=== PATIENT | female | born 1965 | race Caucasian/White ===

== ENCOUNTER → 2018-06-14 10:40 | Outpatient (CLI) | payer OTHER, SELFPAY ==
--- NOTE | 2018-06-14 | DI.MG.S_ITS ---
BILATERAL DIGITAL SCREENING MAMMOGRAM 3D/2D WITH CAD: 06/14/2018 CLINICAL: Routine screening. Comparison is made to exams dated: 03/11/2017 mammogram, 02/22/2016 mammogram - [facility], 04/24/2011 mammogram - [facility], and 03/21/2017 mammogram - [facility]. The tissue of both breasts is heterogeneously dense. This may lower the sensitivity of mammography. Current study was also evaluated with a Computer Aided Detection (CAD) system. No significant masses, calcifications, or other findings are seen in either breast. There has been no significant interval change. IMPRESSION: NEGATIVE There is no mammographic evidence of malignancy. A 1 year screening mammogram is recommended. This exam was interpreted at Station ID: [id number]. NOTE: For mammograms, a report in lay terms will be sent to the patient. Approximately 15% of breast malignancies will not be visualized mammographically. In the management of a palpable breast mass, a negative mammogram must not discourage biopsy of a clinically suspicious lesion. Electronically Signed By: Luke alcantar/tara:06/16/2018 16:49:16 letter sent: Normal Exam ACR BI-RADS Category 1: Negative 3341F
== END ==
PROVIDERS: PCP Family Medicine; Visit Provider Family Medicine
DX: Z12.31 Encounter for screening mammogram for malignant neoplasm of breast (principal)
CPT/HCPCS: 77063; 77067

== ENCOUNTER → 2020-01-07 08:59 | Outpatient (CLI) | payer OTHER, SELFPAY ==
[2020-01-07 11:09] LABS: Add Manual Diff / Slide Review NO; Basophils Absolute Auto 0 /uL (0-100); Basophils Percent Auto 0.4 % (0-2); Eosinophils Absolute Auto 200 /uL (0-450); Hematocrit 45.2 % (36-46); Hemoglobin 15.4 g/dL (12.0-16.0); Lymphocytes Absolute Auto 2000 /uL (1100-4500); Lymphocytes Percent Auto 34.5 % (25-40); Mean Corpuscular Hemoglobin 29.4 PG (26-34); Mean Corpuscular Volume 86.4 fL (80-100); Monocytes Absolute Auto 400 /uL (0-900); Monocytes Percent Auto 7.7 % (3-14); Neutrophils Absolute Auto 3000 /uL (1500-7000); Neutrophils Percent Auto 53.4 % (50-75); Platelet Count 240 X10^3/uL (150-400); Red Blood Cell Count 5.23 X10^6/uL (4.0-5.2); White Blood Cell Count 5.6 X10^3/uL (4.5-11.0)
[2020-01-07 12:03] LABS: Alanine Aminotransferase 15 IU/L (<35); Albumin 4.1 g/dL (3.5-5.0); Albumin Globulin Ratio 1.3 (1.0-2.8); Alkaline Phosphatase 101 U/L (38-126); Aspartate Aminotransferase 18 IU/L (14-36); BUN Creatinine Ratio 20.9 (6-22); Bilirubin Total 0.5 mg/dL (0.2-1.3); Blood Urea Nitrogen 19 mg/dL (7-17); Calcium 9.4 mg/dL (8.4-10.2); Carbon Dioxide 31 mmol/L (22-32); Chloride 101 mmol/L (98-107); Cholesterol 294 mg/dL (140-199); Estimated Glomerular Filt Rate > 60.0 mL/min (>60); Globulin 3.2 g/dL (1.7-4.1); Glucose 104 mg/dL (70-100); HDL Cholesterol 44 mg/dL (40-60); HEMOLYSIS < 15 (0-50); LDL Cholesterol Calculated 198 mg/dL (<100); Potassium 4.4 mmol/L (3.4-5.1); Sodium 139 mmol/L (137-145); Total Protein 7.3 g/dL (6.3-8.2); Triglycerides 259 mg/dL (35-150)
[2020-01-07 12:19] LABS: TSH w/ Reflex to FT4 2.38 uIU/mL (0.47-4.68)
== END ==
PROVIDERS: PCP Registered Nurse Diabetes Educator; Referring Provider Registered Nurse Diabetes Educator; Visit Provider Registered Nurse Diabetes Educator
DX: Z00.00 Encounter for general adult medical examination without abnormal findings (principal)
CPT/HCPCS: 36415; 80053; 80061; 84443; 85025

== ENCOUNTER → 2020-01-14 17:36 | Outpatient (CLI) | payer OTHER, SELFPAY ==
--- NOTE | 2020-01-14 17:39 | DI.MG.S_ITS ---
BILATERAL DIGITAL SCREENING MAMMOGRAM 3D/2D WITH CAD: 01/14/2020 CLINICAL: Routine screening. Comparison is made to exams dated: 06/14/2018 mammogram, 03/11/2017 mammogram, and 02/22/2016 mammogram - [facility]. The tissue of both breasts is heterogeneously dense. This may lower the sensitivity of mammography. Current study was also evaluated with a Computer Aided Detection (CAD) system. No significant masses, calcifications, or other findings are seen in either breast. There has been no significant interval change. IMPRESSION: NEGATIVE There is no mammographic evidence of malignancy. A 1 year screening mammogram is recommended. This exam was interpreted at Station ID: [id number]. NOTE: For mammograms, a report in lay terms will be sent to the patient. Approximately 15% of breast malignancies will not be visualized mammographically. In the management of a palpable breast mass, a negative mammogram must not discourage biopsy of a clinically suspicious lesion. Electronically Signed By: Giovanni Holder M.D., jr/tara:01/15/2020 08:36:32 letter sent: Normal Exam ACR BI-RADS Category 1: Negative 3341F
== END ==
PROVIDERS: PCP Registered Nurse Diabetes Educator; Referring Provider Registered Nurse Diabetes Educator; Visit Provider Registered Nurse Diabetes Educator
DX: Z12.31 Encounter for screening mammogram for malignant neoplasm of breast (principal)
CPT/HCPCS: 77063; 77067

== ENCOUNTER 2020-05-26 19:54 | Emergency (ER) | payer OTHER, SELFPAY ==
[2020-05-26 20:03] VITALS: BP 191/110; PULSE 92; RESP 17; TEMP 36.8; O2SAT 95; BMI 42.4
--- NOTE | 2020-05-26 20:05 | DI.US.S_ITS ---
PROCEDURE: US PERIPH VENOUS LOW EXTREM LT INDICATIONS: rule out dvt TECHNIQUE: Real-time imaging, as well as color and pulse Doppler interrogation, were performed of the lower extremity deep veins from the inguinal ligament to the popliteal fossa. COMPARISON: None. FINDINGS: The common femoral, femoral and popliteal veins are normally compressible, and free of intraluminal thrombus. Color and pulse Doppler demonstrate normal phasic intraluminal flow. There is normal augmentation response to distal compression maneuver. IMPRESSION: No DVT in the left lower extremity. Dictated by: Sofi Chapman M.D. on 05/26/2020 at 21:14 Approved by: Sofi Chapman M.D. on 05/26/2020 at 21:15
--- NOTE | 2020-05-26 20:14 | PC.NURSE ---
Pain in calf and achilles. Pt has a Bakers Cyst behind left knee. Bilateral shins with brown discoloration/sun damage.
[2020-05-26 20:20] VITALS: PULSE 82; O2SAT 97
[2020-05-26 20:30] VITALS: BP 187/99; PULSE 85; O2SAT 97
[2020-05-26 21:00] VITALS: BP 169/96; PULSE 81; O2SAT 97
--- NOTE | 2020-05-26 21:04 | ED.EXTPRO ---
HPI - Extremity Problem General Chief complaint: Extremity Problem,Nontraumatic Stated complaint: left leg, hot and swelling Time Seen by Provider: 05/26/20 20:50 Source: patient Mode of arrival: Ambulatory Limitations: no limitations History of Present Illness HPI Narrative: Patient is a 55-year-old male with no past medical history presenting today with left leg pain and swelling ongoing for about a week. She says that she has been seeing a chiropractor to can help with some left leg swelling and Achilles issues. She said she has had some inflammation and pain along her Achilles for a week or more. 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 She tries to elevate her leg when she goes home. She does think that there is some decrease in swelling in the morning and it progressively gets worse throughout the day but it is not on her right leg. She denies any fever or chills. She saw a chiropractor today who thought that her leg was more swollen than normal and it was erythematous. His she denies numbness or tingling. She is currently not taking any medication. Her Achilles is obviously tender to touch. He denies any recent travel no prior history of DVT or PE MD Complaint: extremity swelling Onset (ago): week(s) Pain Consistency: constant Location: left and lower extremity Related Data Home Medications Medication Instructions Recorded Confirmed No Known Home Medications 12/24/19 01/19/20 Allergies Allergy/AdvReac Type Severity Reaction Status Date / Time No Known Drug Allergies Allergy Verified 01/19/20 16:38 Review of Systems Review of Systems Narrative: GENERAL: Denies chills, fatigue, malaise, fever, sweats, travel HEENT: Denies sinus pain, ear pain, sore throat, difficulty swallowing, neck pain RESPIRATORY: Denies dyspnea, cough, wheezing, hemoptysis, sputum. CARDIOVASCULAR: Denies chest pain, palpitations, orthopnea, edema GASTROINTESTINAL: Denies nausea, vomiting, abdominal pain, diarrhea, constipation, melena. : Denies dysuria, frequency, incontinence, hematuria, urinary retention, flank pain. MUSCULOSKELETAL: See HPI SKIN: No rash, no erythema, no pruritus NEUROLOGIC: Denies weakness, dizziness, headache, numbness, change in speech, confusion PSYCHIATRIC: No concerning psychosocial issues. 12 point review of systems is negative except for those stated above and HPI Patient History Medical History (Updated 05/26/20 @ 21:16 by Renata Oconnor DO) Allergic rhinitis Cardiac syndrome X Dyslipidemia Knee pain Migraine Mild intermittent asthma Obesity Social History Smoking Status: Never smoker Smoking Status: Never smoker Substance Use Type: does not use Exam Initial Vital Signs Initial Vital Signs: Vital Signs Temperature 98.2 F 05/26/20 20:03 Pulse Rate 92 H 05/26/20 20:03 Respiratory Rate 17 05/26/20 20:03 Blood Pressure 191/110 H 05/26/20 20:03 Pulse Oximetry 95 05/26/20 20:03 GENERAL: Pleasant nice 55-year-old female and in no acute distress. HEENT: Head atraumatic,EOMI, pupils reactive, face symmetric, moist mucous membranes CARDIOVASCULAR: Regular rate and rhythm without murmurs, rubs or gallops. RESPIRATORY: Breath sounds equal bilaterally, no wheezes rales or rhonchi. EXTREMITIES: Normal range of motion, no clubbing or edema. Neurovascularly intact Left lower extremity is mildly more swollen than her right a. She is tender along her Achilles but is able to flex his and extend her foot without issue. Distal pedal pulse intact NEUROLOGICAL: Alert and oriented x4.Normal gait and speech. Cranial nerves II through XII grossly intact. SKIN: Patient has some mild erythema on the medial part of her legs were they rub together. No significant his left lower extremity erythema. Course Orders Ordered: ED Orders 05/26/20 20:05 US periph venous low extrem lt Stat Vital Signs Vital signs: Vital Signs - 8 hr 05/26/20 20:03 05/26/20 20:20 05/26/20 20:30 Temperature 98.2 F Pulse Rate 92 H 82 85 Respiratory Rate 17 Blood Pressure 191/110 H 187/99 H Pulse Oximetry 95 97 97 05/26/20 21:00 05/26/20 21:26 Temperature Pulse Rate 81 83 Respiratory Rate Blood Pressure 169/96 H 169/96 H Pulse Oximetry 97 97 MDM - Extremity (Nontraumatic) Imaging Data US - DVT: Radiologist's Impression: PROCEDURE: US PERIPH VENOUS LOW EXTREM LT INDICATIONS: rule out dvt TECHNIQUE: Real-time imaging, as well as color and pulse Doppler interrogation, were performed of the lower extremity deep veins from the inguinal ligament to the popliteal fossa. COMPARISON: None. FINDINGS: The common femoral, femoral and popliteal veins are normally compressible, and free of intraluminal thrombus. Color and pulse Doppler demonstrate normal phasic intraluminal flow. There is normal augmentation response to distal compression maneuver. IMPRESSION: No DVT in the left lower extremity. Dictated by: Sofi Chapman M.D. on 05/26/2020 at 21:14 MDM Narrative Medical decision making narrative: The patient's left leg is only mildly more swollen than her right. No sign of cellulitis no antibiotics indicated at this time. Ultrasound is negative for DVT. She is tender along her Achilles likely Achilles tendinitis. She is not currently on medication to be causing this. This may also be contributing to some of her swelling. I recommend ibuprofen ice and possible orthopedic follow-up I told both her and her that there are antibiotics such as fluoroquinolones that she needs to avoid Discharge Plan Departure Patient Disposition: Home Clinical Impression: Achilles tendinitis Qualifiers: Laterality: left Qualified Code(s): M76.62 - Achilles tendinitis, left leg Instructions: Achilles Tendinopathy Activity Restrictions/Additional Instructions: *You have been diagnosed with Achilles tendinitis *What to do: Recommend wearing compression socks as to help with swelling in the left leg. Her ultrasound is negative for DVT. You may need referral to orthopedics in regards to her Achilles tendon *Continue to take medications as directed Ibuprofen 600 mg every 6-8 hours if needed for [id number] pain *Follow up with your primary care provider in 2-3 days *Return to ER if you should have is increasing swelling, redness, fever, pain or any new, worsening or concerning symptoms Prescriptions: No Action No Known Home Medications RF: 0 Referrals: Hoang Ravi ARNP [Primary Care Provider] -
[2020-05-26 21:26] VITALS: BP 169/96; PULSE 83; O2SAT 97
== END 2020-05-26 21:30 | disposition home or self-care (01) ==
PROVIDERS: Emergency Provider Emergency Medicine; PCP Registered Nurse Diabetes Educator
DX: M76.62 Achilles tendinitis, left leg (principal); E78.5 Hyperlipidemia, unspecified; E66.9 Obesity, unspecified; Z68.41 Body mass index [BMI] 40.0-44.9, adult
CPT/HCPCS: 93971; 99283

== ENCOUNTER → 2020-06-01 15:38 | Outpatient (CLI) | payer OTHER, SELFPAY ==
--- NOTE | 2020-06-01 15:40 | DI.RAD.S_ITS ---
PROCEDURE: XR ANKLE LT MIN 3V INDICATIONS: left achilles pain and bruising TECHNIQUE: 3 views of the ankle were acquired. COMPARISON: None. FINDINGS: Bones: No fractures or dislocations. Ankle mortise is normally aligned. No suspicious bony lesions. Soft tissues: No tibiotalar joint effusion. Achilles tendon appears normal. IMPRESSION: No osseous trauma is found. The lateral view does not allow clear visualization of the Achilles tendon, but there is edema within the soft tissues and prominence of fatty soft tissues and edematous soft tissues in this area reducing quality of visualization. If Achilles tendon partial or complete tear is clinically suspected follow-up by MR scanning should be obtained. Dictated by: Jovany Alvarez M.D. on 06/01/2020 at 16:15 Approved by: Jovany Alvarez M.D. on 06/01/2020 at 17:08
--- NOTE | 2020-06-01 15:40 | DI.RAD.S_ITS ---
PROCEDURE: XR KNEE RT 3V INDICATIONS: bilateral knee pain TECHNIQUE: Degenerative knee joint osteoarthritis study, 3 views of the knee were acquired. COMPARISON: [facility], , KNEE 3V LEFT, 04/04/2010, 13:33. FINDINGS: Bones: No fractures or dislocations. No suspicious bony lesions. Worsening osteoarthritis from the comparison study 04/04/10. It was relatively mild in 2009 and now is near severe at the medial compartment right knee. Moderate osteoarthritis is present at the other compartments. No trauma. Soft tissues: No joint effusion. No suspicious soft tissue calcifications. IMPRESSION: Overall knee joint osteoarthritis is greater on the right than the left, and near severe on the right on the current study. As was seen on the left the degree of degeneration has appreciably worsened from 2009. Dictated by: Jovany Alvarez M.D. on 06/01/2020 at 17:09 Approved by: Jovany Alvarez M.D. on 06/01/2020 at 17:25
--- NOTE | 2020-06-01 15:40 | DI.RAD.S_ITS ---
PROCEDURE: XR KNEE LT 3V INDICATIONS: bilateral knee pain TECHNIQUE: 3 views of the knee were acquired. Knee joint osteoarthritis previously seen. COMPARISON: [facility], , KNEE 3V LEFT, 04/04/2010, 13:33. FINDINGS: Bones: No fractures or dislocations. No suspicious bony lesions. Soft tissues: No joint effusion. No suspicious soft tissue calcifications. IMPRESSION: No trauma found. There has been progression of degenerative knee joint osteoarthritis on the left with reference to the earlier plain film imaging from 04/04/10. Overall arthritis now is moderate in severity. It previously was mild. Dictated by: Jovany Alvarez M.D. on 06/01/2020 at 17:08 Approved by: Jovany Alvarez M.D. on 06/01/2020 at 17:09
== END ==
PROVIDERS: PCP Registered Nurse Diabetes Educator; Referring Provider Family Medicine; Visit Provider Family Medicine
DX: M25.561 Pain in right knee (principal); M25.562 Pain in left knee; M17.0 Bilateral primary osteoarthritis of knee; M76.62 Achilles tendinitis, left leg; M25.572 Pain in left ankle and joints of left foot
CPT/HCPCS: 73562; 73610

== ENCOUNTER → 2020-06-07 16:57 | Outpatient (CLI) | payer OTHER, SELFPAY ==
--- NOTE | 2020-06-07 17:00 | DI.MRI.S_ITS ---
PROCEDURE: MR ANKLE LT WO CON INDICATIONS: left achilles pain and bruising TECHNIQUE: Noncontrast sagittal T1 spin echo and T2 fast spin echo with fat saturation, axial proton density fast spin echo and T2 fast spin echo with fat saturation, coronal T1 spin echo and T2 fast spin echo with fat saturation through the ankle/hindfoot. COMPARISON: [facility], CR, XR ANKLE LT MIN 3V, 06/01/2020, 15:39. FINDINGS: Image quality: Excellent. Bones and joints: No bone marrow contusions or fractures. No hindfoot coalitions. No osteochondral injuries of the talar dome. No pathologic joint effusions. Mild degenerative changes are seen at the 1st tarsometatarsal joint. Medial structures: The deep and superficial layers of the deltoid ligament appear intact. The spring ligament components are intact. The posterior tibialis, flexor digitorum longus, and flexor hallucis longus tendons are intact. The posterior tibial neurovascular bundle appears normal within the tarsal tunnel, without extrinsic mass effect. Lateral structures: There is chronic complete tearing of the anterior talofibular ligament. The calcaneofibular ligament and posterior talofibular ligament are intact. The anterior and posterior tibiofibular ligaments appear intact. There is mild peroneus brevis tendinosis. The peroneus longus tendon is intact. The sinus tarsi demonstrates normal fatty signal, without edema, fibrosis, or cyst formation. Anterior structures: The tibialis anterior, extensor hallucis longus, and extensor digitorum longus tendons appear intact. The dorsal talonavicular ligament appears intact. Posterior and plantar structures: There is complete tearing of the Achilles tendon approximately 5 cm above its insertion onto the calcaneus. There is separation of the posterior fibers measuring up to 2.4 cm and delamination and further separation of the more anterior fibers measuring up to 4 cm. A small fluid collection/hematoma is seen between the tendon fibers. The plantaris tendon also appears to be torn. A small nonedematous plantar calcaneal spur is present. There is mild thickening of the proximal plantar fascia compatible with chronic tendinosis. There is grade 2 fatty infiltration of the abductor digiti minimi muscle that may be related to chronic denervation changes. IMPRESSION: 1. Complete rupture of the Achilles tendon approximately 5 cm above the distal insertion with separation of tendon fibers measuring up to 4 cm and a small intervening hematoma. The plantaris tendon is also torn. 2. Chronic complete tearing of the anterior talofibular ligament. 3. Mild peroneus brevis tendinosis 4. Moderate chronic plantar fasciitis. 5. Mild fatty infiltration of the abductor digiti minimi muscle may be secondary to chronic denervation changes (Pugh's neuropathy). Dictated by: Carl Luna M.D. on 06/08/2020 at 9:02 Approved by: Carl Luna M.D. on 06/08/2020 at 9:15
== END ==
PROVIDERS: PCP Registered Nurse Diabetes Educator; Referring Provider Family Medicine; Visit Provider Family Medicine
DX: M79.605 Pain in left leg (principal); S86.012A Strain of left Achilles tendon, initial encounter; S93.492A Sprain of other ligament of left ankle, initial encounter; M72.2 Plantar fascial fibromatosis
CPT/HCPCS: 73721

== ENCOUNTER → 2020-06-20 16:54 | Outpatient (CLI) | payer OTHER, SELFPAY ==
[2020-06-20 18:06] LABS: COVID19 -Nasal RAPID Negative (Negative)
== END ==
PROVIDERS: PCP Registered Nurse Diabetes Educator; Visit Provider Physician Assistant
DX: Z20.822 Contact with and (suspected) exposure to COVID-19 (principal)
CPT/HCPCS: 87635

== ENCOUNTER 2020-06-22 07:20 | Day surgery (SDC) | payer OTHER, SELFPAY ==
[2020-06-22] VITALS (12 sets, daily range): BP systolic 115–155; BP diastolic 66–103; PULSE 68–81; RESP 10–18; TEMP 36.3–36.6; O2SAT 83–99; BMI 40.7
[2020-06-22] MEDS: LACTATED RINGERS 1,000 ML 100 ML IV (08:07)
--- NOTE | 2020-06-22 08:32 | PM.PREOP ---
Pre-operative Note COVID-19 COVID-19 status: Negative Interval Note History & Physical reviewed/Exam performed by Physician: Yes Changes to H&P: No
--- NOTE | 2020-06-22 09:13 | SUR.PREOP ---
0850 - Monitoring initiated and maintained throughout procedure. O2 at 2LNC placed per Dr Mcmillan. Time out performed for left sciatic nerve block. Versed given by Dr Mcmillan. 0905 - Injection time. 0907- Block complete. Pt remained stable throughout procedure. No adverse reactions noted.
[2020-06-22] MEDS: CEFAZOLIN 1 GM/50 ML FROZ.PIGGY IV (09:15)
[2020-06-22] MEDS: CEFAZOLIN 2 GM/100 ML FROZ.PIGGY IV (09:25)
--- NOTE | 2020-06-22 09:39 | SUR.OPER ---
Prone on padded OR bed, head in foam head support, gel chest rolls, gel pad under knees, pillow under lower legs, left leg under control of surgeon, toes free of pressure, Right lower leg is taped over the blanket to the OR bed. Arms secured on padded arm boards at <90 degrees abduction. Safety belt at her back
[2020-06-22] MEDS: BUPIVACAINE 0.5% W/ EPI (PF) 30 ML VIAL INJ (09:52)
--- NOTE | 2020-06-22 10:12 | P.PCN_ITS ---
Procedures Date/Time Date of procedure: 06/22/20 Time of procedure: 08:50 General Procedure description: Ultrasound guided popliteal sciatic nerve block for post op pain control after left achilles tendon repair by Dr. Manuel. Risk and demian efits of procedure discussed with patient. ASA monitoring applied to patient. Oxygen given via nasal cannula. 2 mg Versed and 50 mcg fentanyl given for procedural sedation. Skin site was prepped with chlorhexidine and allowed to fully dry. Sterile gloves, mask, hat and probe cover were used to maintain sterility. 2% lidocaine and 30ga needle was used to make a small skin wheal at needle insertion site. Under ultrasound guidance, a 21ga 100mm Pajunk needle was directed near the division of the sciatic nerve into tibial and peroneal nerve in the popliteal fossa (lateral approach). Patient reported no parasthesias. After negative aspiration, 20 mL 0.5% ropivicaine and 10mg dexamethasone were in jected around sciatic nerve. Patient tolerated procedure well.
[2020-06-22] MEDS: OXYCODONE/ACETAMINOPHEN 5/325 TABLET 1 TAB PO ×2 (11:27→12:28)
[2020-06-22] MEDS: ONDANSETRON 4 MG/2 ML INJ IV (11:27)
--- NOTE | 2020-06-22 11:30 | P.OP_ITS ---
Operative Date/Time/Diagnoses Date of procedure: 06/22/20 Time of procedure: 09:30 Pre-op diagnosis: left Achilles tendon rupture, subacute morbid obesity BMI 40.8 Post-op diagnosis: same Procedure & Clinicians Procedure: 1. Left Achilles tendon repair secondary [id number] 2. left V-Y lengthening CPT 77641 this procedure was performed with modifier 22 for increased complexity and time. Patient's morbid obesity BMI 40.8 requiring additional time aid in positioning and exposure. The rupture was subacute approximately 4 to 5-week-old with organized hematoma and scar requiring debridement and V-Y lengthening. Same procedure as scheduled: Yes Indications: Patient is a 55-year-old female that presents with left ankle pain and weakness. She has a full-thickness left Achilles tendon rupture unfortunately this happened sometime about a month ago. She had a prodrome of pain and then less pain and new weakness. She does not have diabetes. No vascular problems she does have a history of knee arthritis and right knee pain. No history of blood clots. No medical allergies. She has been indicated for repair of her Achilles tendon rupture and she has been counseled on possible lengthening a required based on the 5 cm gap present on MRI. The risks and benefits of the procedure have been discussed with the patient even opportunity to ask questions. The risks of surgery include but are not limited to infection, malunion, nonunion, persistence of pain, damage to nerves and blood vessels, posttraumatic arthritis, DVT, PE, cardiopulmonary complications and . The patient expressed a thorough understanding of the risks and benefits of surgery and has elected to proceed. Consent was signed in the office. Surgeon: Estrellita Manuel Click Yes if Unassisted: Yes Anesthesia Type: General, Peripheral nerve block ( Placed by Anesthesia Team) and Local ( 10 cc 0.5% Marcaine) Operative Notes Findings: full-thickness Achilles tendon rupture in watershed area with a sero ma and organized scar requiring extensive debridement. After debridement and in maximal plantar flexion position still had a gap of approximately 3 cm lengthening was completed to obtain tendinous contact in maximal plantar flexion position Closure Type: primary Specimen(s): none sent Applied: implant(s) ( Ar[employer]rex SwiveLock anchors, with FiberTape) Estimated Blood Loss (mL): 20 Blood products transfused: none Tourniquet time (min): 59 Procedure in detail: patient was seen in the preoperative area the site of surgery was marked informed consent confirmed. The patient was brought back to the operating room by the anesthesia team. A peripheral nerve block was placed by the anesthesia team for postoperative pain control. patient was positioned supine general anesthetic was administered on the stretcher then the patient was positioned prone on the operative table. All bony prominences were well padded. A well-padded thigh tourniquet was placed on the left lower extremity prior to the roll. The left lower extremity was prepped and draped in the standard sterile fashion. Formal time-out procedure was performed confirming the patient's side and site of surgery administration of appropriate weight based preoperative antibiotics which in this case was 3 g of cefazolin. all were in agreement. The Esmarch was used for exsanguination the tourniquet raised on the thigh to 250 mm of mercury. Attention was turned to the left leg there is a palpable gap and and increased resting dorsiflexion compared to the contralateral side. The incision was marked out just medial to the Achilles tendon starting at the level of the rupture extending proximally and then curving into the midline. This was taken down through the skin subcutaneous tissue. The paratenon was opened and the rup ture encountered. There was a small seroma within the paratenon that was removed with suction. Next the scar at the tendon ends was debrided. This left approximately a 6 cm gap and then with maximal plantar flexion was still about a 3 cm gap even after about 5 minutes of tension using Allis clamps and tension on the suture tape. Decision was made for a V-Y lengthening to bridge this remaining gap. The Arthrex FiberTape was placed through the proximal stump in a Krackow fashion next the V-Y lengthening was marked out with the limbs of about 5-6 cm for a 2-3 cm lengthening. once the V-Y lengthening was complete we were able to make contact with the distal and proximal stumps in the maximal plantar flexion position. Decision was made to utilize the midsubstance a speed bridge just SwiveLock anchors into the calcaneus and bypass the distal stump which was a diminutive and also would avoid additional exposure of the distal stump in the area of most vulnerable to wound breakdown. It is also felt that direct bone anchors in this patient with the morbid obesity would help protect the repair for early mobilization. A deep fasciotomy was completed to at of blood flow to the repair. Then 2 stab incisions were made over the heel at the Achilles insertion the hemostat was used to clear off soft tissue down to bone. The drill was positioned angulated just done down and in at 45 degree angle and drilled to the stop. Then the 4.75 tap was utilized on both sides. The Banana Lasso was then passed from the stab wound through the distal stump and the suture tape in the proximal stump was retrieved back out the stab incisions in the heel. These were then loaded on the SwiveLock anchors the leg was held in maximal plantar flexion the and stump pins were noted to approximate well and the swivel locks were advanced into the bone with a good natural squeak. Care was taken to make sure that the anchor heads were buried and not prominent. once this was completed the area of tendon anastomosis was oversewn with some 0 Vicryl in a figure-eight fashion. The V-Y lengthening was closed down with 2. FiberWire. The repair was tested restoring a Brandon test and holding against resistance. The wound was irrigated thoroughly. The paratenon was closed with 2 0 PDS suture. Tourniquet was released hemostasis was achieved. Several 2 0 PDS raised in the subcutaneous tissue and then 4-0 Monocryl and 3-0 nylon in the skin. A sterile dressing was placed with Xeroform gauze ABD pads Webril and a posterior splint in a plantar flexion position. Complications: none Post-operative Condition: stable Disposition: PACU Plan for aftercare: NWB (toe-touch for balance) left lower extremity. Elevate above the heart level as much as possible 1st 2 weeks after surgery. Left oxycodone for pain. Zofran for nausea. Start taking aspirin 325 mg b.i.d. on postop day 1 for DVT prophylaxis. Follow up in clinic in 2 weeks
[2020-06-22] MEDS: fentaNYL 100 MCG/2 ML INJ IV (11:55)
== END 2020-06-22 13:00 | disposition home or self-care (01) ==
PROVIDERS: PCP Registered Nurse Diabetes Educator; Referring Provider Registered Nurse Diabetes Educator; Visit Provider Orthopaedic Surgery Foot and Ankle Surgery
PROC: (CPT 27650; principal; 2020-06-22 08:45)
DX: S86.012A Strain of left Achilles tendon, initial encounter (principal); M17.11 Unilateral primary osteoarthritis, right knee; J45.909 Unspecified asthma, uncomplicated; Z68.41 Body mass index [BMI] 40.0-44.9, adult; E66.01 Morbid (severe) obesity due to excess calories
CPT/HCPCS: 27654; J0690; J1100; J1885; J2250; J2405; J2704; J3010

== ENCOUNTER → 2021-12-19 17:31 | Outpatient (CLI) | payer OTHER, SELFPAY ==
--- NOTE | 2021-12-19 17:31 | DI.MRI.S_ITS ---
PROCEDURE: MR KNEE RT WO CON INDICATIONS: bilateral knee pain TECHNIQUE: Noncontrast sagittal PD fast spin echo and T2 fast spin echo with fat saturation, sagittal 3-D FLASH with fat saturation; coronal T1 spin echo and PD fast spin echo with fat saturation, and axial PD fast spin echo with fat saturation through the knee. COMPARISON: [facility], MR, KNEE WITHOUT CONTRAST, 06/24/2013, 19:27. FINDINGS: Image quality: Excellent. Menisci: Peripheral displacement of medial meniscus bowing medial collateral ligament is seen. There is suggestion of chronic complex tear involving body and posterior horn of medial meniscus extending to both superior and inferior articulating surfaces. No gross focal lateral meniscal tear. The meniscal root ligaments appear intact. Cruciate ligaments: Chronic myxoid degenerative changes are noted in ACL. No definite full 6 is ACL rupture. PCL is intact. Medial structures: Moderate grade MCL sprain/partial-thickness tear is seen.. The posterior oblique ligament, semimembranosus tendon insertions, oblique popliteal ligament, and meniscocapsular junction appear intact. Visualized portions of the pes anserinus tendons appear normal. No abnormal bursal fluid. Lateral structures: The lateral collateral ligament, long and short heads of the biceps femoris tendon appear intact. The popliteus tendon appears normal; the popliteofibular ligament appears intact. The posterosuperior and anteroinferior popliteomeniscal fascicles appear intact. The arcuate and fabellofibular ligaments appear intact, on either side of the lateral inferior geniculate artery. Iliotibial band appears normal. Anterior structures: The quadriceps and patellar tendons appear intact. Patellar alignment is normal. No femoral trochlear dysplasia or ventral trochlear prominence. No edema in the infrapatellar fat pad. Bones and cartilage: Moderate to severe tricompartmental osteoarthritis and chondromalacia more prominent in medial femoral tibial compartment. No fracture or dislocation. Small osteochondral injuries are noted involving weight-bearing portion of lateral femoral condyle and posterior lateral aspect of patella near apex. Joint space: There is small to moderate amount of joint fluid. No gross loose body is seen. Small popliteal cyst is noted measures 2 x 2.1 x 2.3 cm in size with internal septations. Normal appearing synovial plicae are incidentally noted. IMPRESSION: 1. Chronic appearing complex tear involving body and posterior horn of medial meniscus extending to both superior and inferior articulating surfaces. Peripheral displacement of medial meniscus bowing medial collateral ligament. No evidence of focal lateral meniscal tear. 2. Degenerative changes and moderate grade intrasubstance partial-thickness tear involving anterior cruciate ligament. No ACL rupture. PCL is intact. 3. Moderate grade MCL sprain/partial-thickness tear. 4. Moderate to severe tricompartmental osteoarthritis and chondromalacia most prominent in medial femoral tibial compartment as above. No fracture or dislocation. Small to moderate joint effusion and a septated popliteal cyst as above. Dictated by: Jhonathan Yip M.D. on 12/20/2021 at 8:46 Approved by: Jhonathan Yip M.D. on 12/20/2021 at 8:51
--- NOTE | 2021-12-19 17:31 | DI.MRI.S_ITS ---
PROCEDURE: MR KNEE LT WO CON INDICATIONS: bilateral knee pain TECHNIQUE: Noncontrast sagittal PD fast spin echo and T2 fast spin echo with fat saturation, sagittal 3-D FLASH with fat saturation; coronal T1 spin echo and PD fast spin echo with fat saturation, and axial PD fast spin echo with fat saturation through the knee. COMPARISON: [facility], MR, MR KNEE RT WO CON, 12/19/2021, 17:47. FINDINGS: Image quality: Diagnostic, patient motion is noted. Menisci: Peripheral displacement of medial meniscus bowing medial collateral ligament is seen. There is subtle complex tear involving posterior horn of medial meniscus extending to both superior and inferior articulating surfaces. There is no gross focal lateral meniscal tear. The meniscal root ligaments appear intact. Cruciate ligaments: Degenerative changes are noted in anterior cruciate ligament. No ACL rupture. PCL is intact. Medial structures: Low to moderate grade MCL sprain/partial-thickness tear is seen. The posterior oblique ligament, semimembranosus tendon insertions, oblique popliteal ligament, and meniscocapsular junction appear intact. Visualized portions of the pes anserinus tendons appear normal. No abnormal bursal fluid. Lateral structures: The lateral collateral ligament, long and short heads of the biceps femoris tendon appear intact. The popliteus tendon appears normal; the popliteofibular ligament appears intact. Iliotibial band appears normal. Anterior structures: The quadriceps and patellar tendons appear intact. Patellar alignment is normal. No femoral trochlear dysplasia or ventral trochlear prominence. No edema in the infrapatellar fat pad. Bones and cartilage: No bone marrow contusions or fractures. Moderate tricompartmental osteoarthritis and chondromalacia is seen most prominent involving medial femoral tibial compartment with joint space narrowing, subchondral sclerosis and prominent marginal osteophyte formation. Joint space: There is small knee joint fluid. No Mcdonald's cyst. Normal appearing synovial plicae are incidentally noted. IMPRESSION: 1. Moderate tricompartmental osteoarthritis and chondromalacia more prominent in medial femoral tibial compartment. No fracture or dislocation. Small joint effusion, no gross loose bodies. 2. Complex tear involving posterior horn of medial meniscus extending to both superior and inferior articulating surfaces. Lateral meniscus is intact. 3. Degenerative changes seen in ACL. No ACL rupture. PCL is intact. 4. Moderate grade MCL sprain/partial-thickness tear. Dictated by: Jhonathan Yip M.D. on 12/20/2021 at 8:51 Approved by: Jhonathan Yip M.D. on 12/20/2021 at 8:57
== END ==
PROVIDERS: PCP Registered Nurse Diabetes Educator; Referring Provider Pediatrics; Visit Provider Pediatrics
DX: S83.232A Complex tear of medial meniscus, current injury, left knee, initial encounter (principal); M25.561 Pain in right knee; M25.562 Pain in left knee; Z87.828 Personal history of other (healed) physical injury and trauma; S86.019A Strain of unspecified Achilles tendon, initial encounter; M17.0 Bilateral primary osteoarthritis of knee
CPT/HCPCS: 73721

== ENCOUNTER → 2023-09-25 08:13 | Outpatient (CLI) | payer OTHER, SELFPAY ==
[2023-09-25 08:59] LABS: Add Manual Diff / Slide Review NO; Basophils Absolute Auto 0 /uL (0-100); Basophils Percent Auto 0.5 % (0-2); Eosinophils Absolute Auto 200 /uL (0-450); Hematocrit 44.7 % (36-46); Hemoglobin 14.9 g/dL (12.0-16.0); Lymphocytes Absolute Auto 1600 /uL (1100-4500); Lymphocytes Percent Auto 30.4 % (25-40); Mean Corpuscular HGB Conc 33.3 % (30-36); Mean Corpuscular Hemoglobin 28.1 PG (26-34); Mean Corpuscular Volume 84.4 fL (80-100); Monocytes Absolute Auto 400 /uL (0-900); Monocytes Percent Auto 8.3 % (3-14); Neutrophils Absolute Auto 3000 /uL (1500-7000); Neutrophils Percent Auto 57.8 % (50-75); Platelet Count 220 X10^3/uL (150-400); Red Cell Distribution Width 15.2 % (11.6-14.8); White Blood Cell Count 5.2 X10^3/uL (4.5-11.0)
[2023-09-25 09:10] LABS: Hemoglobin A1C% w Est Avg Glu 6.2 % (4.0-6.0)
[2023-09-25 09:24] LABS: Alanine Aminotransferase 16 IU/L (<35); Albumin 3.9 g/dL (3.5-5.0); Albumin Globulin Ratio 1.3 (1.0-2.8); Alkaline Phosphatase 115 U/L (38-126); Aspartate Aminotransferase 19 IU/L (14-36); BUN Creatinine Ratio 20.2 (6-22); Bilirubin Total 0.6 mg/dL (0.2-1.3); Blood Urea Nitrogen 22 mg/dL (7-17); Calcium 9.2 mg/dL (8.4-10.2); Carbon Dioxide 29 mmol/L (22-32); Chloride 104 mmol/L (98-107); Cholesterol 266 mg/dL (140-199); Estimated Glomerular Filt Rate 60 mL/min (>60); Globulin 2.9 g/dL (1.7-4.1); Glucose 125 mg/dL (70-100); HDL Cholesterol 48 mg/dL (40-60); HEMOLYSIS < 15 (0-50); LDL Cholesterol Calculated 162 mg/dL (<100); Potassium 4.5 mmol/L (3.4-5.1); Sodium 138 mmol/L (137-145); Total Protein 6.8 g/dL (6.3-8.2); Triglycerides 281 mg/dL (35-150)
[2023-09-25 09:54] LABS: TSH w/ Reflex to FT4 2.29 uIU/mL (0.47-4.68)
== END ==
LOC: LAB 08:14
PROVIDERS: PCP Family Medicine; Referring Provider Family Medicine; Visit Provider Family Medicine
DX: Z00.00 Encounter for general adult medical examination without abnormal findings (principal); E66.9 Obesity, unspecified; I10 Essential (primary) hypertension; E78.5 Hyperlipidemia, unspecified
CPT/HCPCS: 36415; 80053; 80061; 83036; 84443; 85025

== ENCOUNTER → 2024-12-25 15:16 | Outpatient (CLI) | payer OTHER, SELFPAY ==
[2024-12-25 16:49] LABS: Vitamin D 25 Hydroxy (D3) 59.9 ng/mL (30.0-100.0)
[2024-12-25 17:03] LABS: Thyroid Stimulating Hormone 1.67 uIU/mL (0.47-4.68)
== END ==
PROVIDERS: Orthopaedic Surgery Adult Reconstructive Orthopaedic Surgery; PCP Family Medicine; Referring Provider Family Medicine; Visit Provider Family Medicine
DX: M17.0 Bilateral primary osteoarthritis of knee (principal); R68.89 Other general symptoms and signs
CPT/HCPCS: 36415; 82306; 84443

== ENCOUNTER → 2025-01-26 17:16 | Outpatient (CLI) | payer OTHER, SELFPAY ==
--- NOTE | 2025-01-26 17:26 | EKG_ITS ---
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
== END ==
PROVIDERS: PCP Family Medicine; Referring Provider Orthopaedic Surgery Adult Reconstructive Orthopaedic Surgery; Visit Provider Orthopaedic Surgery Adult Reconstructive Orthopaedic Surgery
DX: Z01.818 Encounter for other preprocedural examination (principal)
CPT/HCPCS: 93005; 93010

== ENCOUNTER 2025-03-08 06:05 | Day surgery (SDC) | payer OTHER, SELFPAY ==
[2025-03-01 12:21] VITALS: BMI 37.2
[2025-03-08] VITALS (9 sets, daily range): BP systolic 150–187; BP diastolic 70–104; PULSE 69–85; RESP 12–19; TEMP 36.4–36.6; O2SAT 96–98
--- NOTE | 2025-03-08 06:00 | DI.RAD.S_ITS ---
PROCEDURE: XR KNEE RT 1TO2V INDICATIONS: Post operative imaging TECHNIQUE: 2 view(s) of the knee acquired. COMPARISON: [facility], CR, XR KNEE LT 3V, 06/01/2020, 15:39. FINDINGS: Bones: Patient is status post knee joint arthroplasty. Hardware components are in expected positions. Visualized bony structures are intact. Soft tissues: Overlying postoperative changes are noted. IMPRESSION: Expected post-operative appearance of a knee arthroplasty. Dictated by: Raf Dickinson M.D. on 03/08/2025 at 11:18 Approved by: Raf Dickinson M.D. on 03/08/2025 at 11:18
[2025-03-08] MEDS: MELOXICAM 7.5 MG TABLET 15 MG PO (06:55)
[2025-03-08] MEDS: ACETAMINOPHEN 325 MG TABLET 975 MG PO (06:55)
[2025-03-08] MEDS: LACTATED RINGERS 1,000 ML 42 ML IV ×2 (06:56→10:01)
--- NOTE | 2025-03-08 07:00 | PM.PREOP ---
Pre-operative Note Interval Note History & Physical reviewed/Exam performed by Physician: Yes Changes to H&P: No
[2025-03-08] MEDS: TRANEXAMIC ACID 1,000 MG VIAL 1000 MG INJ ×2 (08:09→09:29)
--- NOTE | 2025-03-08 08:26 | SUR.OPER ---
Supine on padded OR bed. Pillow under head, arms secured on padded armboards <90 degree abduction. Safety belt across torso. Non-operative leg secured with tape over blanket over lower leg. Operative leg secured in DeMayo/Gaurav/Nathe positioner. Foam padded brace at thigh of operative leg. pA in room to assist with positioning, all pressure points padded and protected.
[2025-03-08] MEDS: KETOROLAC 30 MG/ML VIAL 15 MG INJ (08:33)
--- NOTE | 2025-03-08 10:16 | P.OP_ITS ---
Operative Date/Time/Diagnoses Date of procedure: 03/08/25 Time of procedure: 07:45 Pre-op diagnosis: Right knee osteoarthritis Post-op diagnosis: same Procedure & Clinicians Procedure: Right total knee arthroplasty Same procedure(s) as scheduled: Yes Surgeon: Lenny Pinzon Assisted?: Yes Dust Collector Attendant: Caitlin Clark Anesthesia Type: Spinal, Sedation, Peripheral nerve block and Local Operative Notes Findings: Severe arthritis Closure Type: primary Applied: implant(s) Estimated Blood Loss (mL): 75 Tourniquet time (min): 60 Procedure in detail: Right Gap-Balanced John Persona Medial-Congruent Primary Total Knee Arthroplasty Implants: * Size 8 narrow Cruciate Retaining Femoral Component * Size C Tibial Component * Size 12 Medial Congruent Polyethylene Insert * Unresurfaced Patella Procedure Summary: This 60-year-old female patient has a BMI of 38 and given the increased risk of aseptic loosening associated with cemented fixation I therefore recommended uncemented fixation and utilized a uncemented tibia with a central keel and peripheral pegs to provide initial fixation for bony ingrowth. Bone quality was high when evaluated during the procedure. I cut the tibia in varus to minimize the need for soft tissue releases and found that the extension gap would open to 6 medially and 7 laterally after resection of the proximal tibia and the distal femur. There was a large loose body posteriorly which I felt was contributing to some increased tightness at that point in time and soft tissue symmetry was equal on my assessment after removal of the large loose body. Procedure in Detail: This patient was seen preoperatively and evaluated for knee pain which was refractory to numerous nonoperative treatment modalities. Their pain correlated with radiographic changes demonstrating significant degeneration in the knee joint. The risks and benefits of continued nonoperative management versus operative management were discussed at length and all of the patient?s questions were answered. Additional educational materials providing further details beyond our discussion in clinic were provided via a publicly available patient education video which included the incidence of medical complications associated with total knee arthroplasty, reasons for revision following total knee arthroplasty, and patient satisfaction rates following total knee arthroplasty. With this understanding of the risks inherent to the procedure, the patient elected to move forward with operative management. Following preoperative optimization, the patient was scheduled for surgery. The patient was met in the preoperative holding area the day of the procedure and all questions were answered. The patient?s nares were swabbed in order to decolonize them from MRSA. Informed consent was signed and the right limb was marked with indelible ink.? The patient was brought back to the operating room where anesthesia was induced. The patient was transferred to the operating table and all bony prominences were padded. The operative site was prepped and draped in the usual sterile fashion. A second prep stick was utilized following drape placement. The incision was marked corresponding to the medial aspect of the tibial tubercle and the patella. Ioban was wrapped circumferentially around the knee. Prior to incision, tranexamic acid and cefazolin were administered. Templating images were di splayed. A timeout procedure was performed verifying the patient?s identity, medical comorbidities, allergies, relevant medications, anesthesia type and the surgical plan. All present were in agreement. The assistance of a physician integration assistant was required for positioning, room setup, soft tissue retraction and wound closure. Without this assistance, the procedure would have been significantly more challenging and time consuming.?? The tourniquet was inflated prior to incision. I made an anterior incision over the knee, dissected through the subcutaneous tissues and identified the lateral border of the VMO. Medial and lateral soft tissue flaps were developed. A mid- vastus arthrotomy was performed ensuring that adequate capsular tissue would remain for closure at the conclusion of the procedure. The knee was brought into extension and the medial soft tissues were released off the joint line of the tibia. Tissue overlying the distal anterior femur was released to allow for later assessment for anterior notching but left in place. A portion of the retropatellar fat pad was excised while protecting the patellar tendon. The patella was everted. The patella was not resurfaced. Osteophytes were excised and a lateral facetectomy was performed. The patella was released from its everted position.?? I flexed the knee to 90 degrees and placed retractors to allow access to the notch. An opening reamer was used to gain access to the femoral canal and an intramedullary catalina was introduced into the canal. Diaphyseal fit was obtained in order to plan a distal femoral resection at 5 degrees relative to the anatomic axis. A +1 resection was planned and assessed using an nadir wing. I then made the cut using a sagittal saw. This provided additional access to the femoral notch. The ACL and PCL were excised. Retractors were placed on the lateral and medial tibia. I hyperflexed the knee while externally rotating it to sublux the tibia anteriorly. I placed a Kathi retractor posteriorly and used this to provide additional anterior subluxation. The remainder of the PCL root was released. An extramedullary guide was positioned for a resection in slight varus. A +4 resection off the medial tibia was planned and the tibial cutting jig was pinned in place. I evaluated the depth, varus-valgus alignment and slope of the planned tibial resection prior to making the cut. I cut the tibia with a sagittal saw while using retractors to protect the MCL, patellar tendon, and posterolateral structures.? After initial assessment I determined that the tibial cut had ended up being more of a mechanical axis cut so I repositioned the tibial cutting guide and performed a secondary cut which removed bone on the medially to end up with a more varus tibial cut. The knee was repositioned in extension and the Fuzion soft tissue balancing gauge was introduced. This demonstrated that there was equal tension in the medial and lateral compartments of the knee with the knee in full extension and no additional soft tissue releases were necessary. When 40 pounds of force was applied to the Fuzion device, the extension gap opened to 10 mm. I moved the knee into 90 degrees of flexion, and the Fuzion device was recalibrated by removing a 9 mm kapil to allow assessment of the flexion gap. The Fuzion block was placed perpendicular to the resected surface of the tibia and the resected surface of the distal femur. Forty pounds of traction was applied to match the tension of the extension gap. This externally rotated the femur to 4 degrees. Pins were placed in the 10 mm holes. Appropriate sizing was determined and a 4-in-1 block was placed. This was double checked using the Fuzion device to ensure that it would open to an equal distance as the extension gap when the same amount of force was applied. The Fuzion block was also used to assess flexion gap symmetry. An nadir wing was used to ensure there would be no anterior notching. Retractors were placed to protect the soft tissues during resection. Captured cuts were performed with a sagittal saw for the anterior and posterior femur as well as the corresponding chamfers.?A laminar electronic transaction implementer and retractors were used to expose the posterior knee and the menisci and posterior osteophytes were removed. Trial components were placed and the construct was assessed. Range of motion was assessed by ensuring the knee could achieve full extension and assessing maximum passive knee flexion by elevating the femur and allowing the heel to passively fall towards the buttock. Gap symmetry was assessed by stressing the medial and lateral compartments in both extension and flexion. Laxity was assessed in both extension and flexion and the polyethylene trial was adjusted with shims as necessary. Patellar tracking was assessed with knee flexion. Once satisfied with the construct, I moved forward with implant insertion. Lug holes were drilled in the femur and the tibia was prepped ensuring appropriate sizing and rotation relative to the tibial tubercle.?? The bony ends were irrigated. A portion of the anterior chamfer cut was utilized as a to plug the hole from the intramedullary catalina in the femur. I impacted the tibial component into place. The tibia was reduced underneath the femur. I placed the femoral component. I brought the knee into extension and manually pressurized the construct by pushing on the heel. The knee was bathed in a dilute mixture of betadine and peroxide. A mixture of Ropivacaine, Epinephrine and Toradol was infiltrated throughout the soft tissues into structures including the VMO, patellar tendon, quadriceps tendon, MCL and femoral periosteum. The knee was copiously irrigated with pulse lavage. The knee was again trialed. Range of motion was assessed by ensuring the knee could achieve full extension and assessing maximum passive knee flexion by elevating the femur and allowing the heel to passively fall towards the buttock. Gap symmetry was assessed by stressing the medial and lateral compartments in both extension and flexion. Laxity was assessed in both extension and flexion and the polyethylene trial was adjusted with shims as necessary. Patellar tracking was assessed with knee flexion. The tourniquet was let down and the polyethylene trial was removed. I inspected the knee inspected for any residual bleeding. Once hemostasis was achieved I inserted the final polyethylene and ensured appropriate engagement of the dovetail locking mechanism.?? The arthrotomy was closed with non-absorbable interrupted suture ensuring that this extended to the top of the arthrotomy. This was backed up with running barbed suture throughout the arthrotomy. The skin was closed with 2-0 and 3-0 sutures. Surgical glue was applied and a soft dressing was placed.?The sponge, instrument and needle counts were reported as being correct at the end of the case. The patient was transferred from the operating table back to a stretcher. The patient emerged from anesthesia without difficulty and was taken to the PACU in a stable condition.? Plan for aftercare: * Weightbearing as tolerated * Aspirin 81 twice per day for DVT prophylaxis * Multimodal pain regimen with no IV opioids ordered * Anticipate discharge home later today * Follow up at [facility] in 2 weeks for wound check Complications: none Post-operative Condition: stable Disposition: same day surgery
[2025-03-08] MEDS: hydrOXYzine 50 MG/ML INJ 25 MG IM (10:23)
[2025-03-08] MEDS: ONDANSETRON 4 MG/2 ML INJ IV (10:25)
[2025-03-08] MEDS: fentaNYL 100 MCG/2 ML INJ IV (10:27)
--- NOTE | 2025-03-08 10:48 | SUR.PHASEII ---
Report from Pascual DOSS. Pt resting wtih dtr at bedside. Cont pulse ox.
--- NOTE | 2025-03-08 12:45 | PT.IIE ---
Current Diagnoses Unilateral primary osteoarthritis, right knee (03/08/25) Surgery Performed Operation Date: 03/08/25 07:45 Actual Procedures p Total Knee Arthroplasty(Right) - Lenny Pinzon MD Surgical History (Last Updated 03/01/25 @ 12:28 by Chelsy Sy, RN) H/O meniscectomy of right knee (~2013) History of History of laminectomy Hx of Achilles tendon repair (06/22/20) S/P right knee arthroscopy Medical History (Last Updated 03/01/25 @ 12:28 by Chelsy Sy, RN) Allergic rhinitis Arthritis of right knee Asthma Cardiac syndrome X Dyslipidemia Heart attack (09/2004) History of left heart catheterization (09/2004) Knee pain Migraine Mild intermittent asthma Morbid obesity Neuropathy Primary osteoarthritis of both knees Right knee pain Right wrist tendonitis Rupture of left Achilles tendon Ruptured, tendon, Achilles Tendon tear, ankle Physical Therapy Inpatient Evaluation/Re-Eval M1 PT IP Prior Functional Status Start: 03/08/25 11:52 Freq: NEEDED Status: Discharge Protocol: Document 03/08/25 11:59 [facility] (Rec: 03/08/25 12:41 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 Home Environment Standard Height Toilet,High Toilet,Walk in Shower Home Equipment Front Wheel Walker,Four Wheel Walker,Crutches,Grab Bars Near Toilet,Grab Bars In Shower Employment Status [employer] Employed Additional Social parents live with her and can help her. dgt able to History Comment help as needed M2 PT-IP Current Condition Start: 03/08/25 11:52 Freq: NEEDED Status: Discharge Protocol: Document 03/08/25 11:59 [facility] (Rec: 03/08/25 12:41 [facility] [id number]) Physical Therapy Current Condition Current Condition Evaluation Date 03/08/25 Treatment Diagnosis R TKA M3 PT-IP Subjective Start: 03/08/25 11:52 Freq: NEEDED Status: Discharge Protocol: Document 03/08/25 11:59 [facility] (Rec: 03/08/25 12:41 [facility] [id number]) Subjective Physical Therapy Visit Type Type Initial Evaluation Visit Start Time 11:52 Visit Stop Time 12:30 Number of SHOT POLISHER Visits 0 Therapy Pain Assessment Pain When Pain Assessed During Mobility Pain Present Pain Present Pain Reported Location Right Knee Pain Management Re-positioning Techniques M4 PT-IP Mobility and Gait Start: 03/08/25 11:52 Freq: NEEDED Status: Discharge Protocol: Document 03/08/25 11:59 [facility] (Rec: 03/08/25 13:51 [facility] [id number]) PT-Bed Mobility Assessment Supine to Sit Supine to Sit Standby Assistance Scooting Scooting to Edge of Independent Bed PT-Transfer Assessment Sit to and From Stand Sit to and from Standby Assistance,Use of Upper Extremities Stand Equipment Transfer Assistive Gait Belt,Front Wheeled Walker Device Comments Mobility Comments supine to sit w/cues for sequencing RLE, supine BP 172/ 93, seated 180/87 (RN aware of HTN). Sat EOB while pt improved woozy feeling with edu on importance of this and edu re: home safety. sit to stand w/min cues for leg position SBA then amb w/FWW SBA 25 ft to bathroom w /cues for WB and sequencing. Encouraged to use FWW at home vs 4WW until OP PT instructs otherwise. pulled down underwear SBA then sat SBA w/cues tokick out RLE and use rail. able to wipe indep then sit to stand SBA w/cues for RLE position and use of bar and FWW. Pt able to put on underwear and pants indep w/cues w/ sequencing prior to standing. THen amb w/FWW 25 ft to room SBA w/stop at sink to wash hands. Cues to stay in walker. P then chris up/down small step w/FWW w/cues of use of rail and Dgt arm at home w/cues step to pattern. Pt sat EOB and left with RN to adjust IV. Gait Assessment Gait Gait Assistance Standby Assistance Required: Distance (Feet) 50 Able to Maintain Yes Weight Bearing Status During Gait Assistive Devices Assistive Device Gait Belt,Front Wheeled Walker Orthotic/Prosthetic No Devices or Brace: Gait Deviations General Gait Pattern Antalgic,Decreased Stride Length,Decreased Feet Clearance Factors Limiting Gait Function Factors Limiting Decreased Activity Tolerance,Decreased Strength,Limited Gait Function Range of Motion,Pain Stair Climbing Assessment Evaluation Level of Assist On Standby Assistance Stairs Devices Stair Climbing Front Wheel Walker Assistive Devices Technique/Endurance Stair Climbing Ascend and Descend Direction Stair Climbing Step to Step Technique Number of Steps 1 Climbed Query Text: PT-Balance Assessment Sitting Balance and Reactions Static Sitting Normal Balance Ability Dynamic Sitting Normal Balance Ability Standing Balance and Reactions Static Standing Good Balance Ability Dynamic Standing Good Balance Ability Device Used fww M5 PT-IP Objective Assessments Start: 03/08/25 11:52 Freq: NEEDED Status: Discharge Protocol: Document 03/08/25 11:59 [facility] (Rec: 03/08/25 13:51 [facility] [id number]) Orientation Orientation/Cognition Level of Alertness Alert Language Function No Deficits Noted Ability Safety Awareness Understands Safety Issues Memory Description No Deficits Noted Gross Range of Motion Lower Extremity ROM Assessment Right Impaired Strength Lower Extremity Strength Assessment Right Impaired Knee 3/5 Sensation Assessment Sensation Gross Sensation Right LE Impaired Light Touch Impaired M6 PT-IP Treatment Start: 03/08/25 11:52 Freq: NEEDED Status: Discharge Protocol: Document 03/08/25 11:59 [facility] (Rec: 03/08/25 13:51 [facility] [id number]) Physical Therapy Treatment Education Education Provided Precautions,Weight Bearing Status,Post-Op Packet,Safety M7 PT-IP Assessment and Plan Start: 03/08/25 11:52 Freq: NEEDED Status: Discharge Protocol: Document 03/08/25 11:59 [facility] (Rec: 03/08/25 13:51 [facility] [id number]) PT Summary Assessment and Plan Potential Rehabilitation Good Potential Status of Condition Evolving at Evaluation Summary Impairments Pain,ROM,Strength,Balance,Sensation,Bed Mobility, Transfers,Gait,Activity Tolerance Assessment Summary Pt presents post op day 1 S/p R TKA w/good pain control , good house set up and supportive family. She did well with all mobility w/cueing only needed. Dgt present for all edu and participated in session. DC PT at this time as pt is mobilizing well. Will benefit from OP PT Frequency of Treatment Frequency Of Discharge Treatment Treatment Plan Physical Therapy Bed Mobility Training,Transfer Training,Gait Training, Treatment Plan Therapeutic Exercise,Post Op Education Weight Bearing Status Weight Bearing Weight Bear as Tolerated Status Recommendations To Nursing Amount of Assist Standby Assistance Needed Discharge Recommendations PT Discharge Home with Assistance,Outpatient PT Recommendations Transportation Needs Private Vehicle at Discharge - PT assist 1
== END 2025-03-08 13:08 | disposition home or self-care (01) ==
PROVIDERS: PCP Family Medicine; Referring Provider Orthopaedic Surgery Adult Reconstructive Orthopaedic Surgery; Visit Provider Orthopaedic Surgery Adult Reconstructive Orthopaedic Surgery
PROC: 0SRC0JZ Replacement of Right Knee Joint with Synthetic Substitute, Open Approach (ICD-10-PCS; CPT 27447; principal; 2025-03-08 07:45)
DX: M17.11 Unilateral primary osteoarthritis, right knee (principal); R73.03 Prediabetes; I10 Essential (primary) hypertension; E66.9 Obesity, unspecified; Z68.38 Body mass index [BMI] 38.0-38.9, adult
CPT/HCPCS: 27447; 73560; 97162; 97530; C1776; C1713; J0689; J1100; J1885; J2250; J2405; J2704; J3010; J3410; J7120